=== PATIENT | male | born 1980 | race African-American/Black ===

== ENCOUNTER 2019-04-28 06:47 | Day surgery (SDC) | payer BC, OTHER ==
[2019-04-27 15:26] VITALS: BMI 35.1
--- NOTE | 2019-04-28 08:06 | HP ---
[facility] - Chief Complaint Chief Complaint: left wrist mass - Past Medical History Allergies/Adverse Reactions: Allergies Allergy/AdvReac Type Severity Reaction Status Date / Time No Known Drug Allergies Allergy Verified 12/07/12 13:12 - Current Medications Current Medications: Home Medications Medication Instructions Recorded Pantoprazole Sodium [Protonix -] 40 mg PO DAILY 04/27/19 Fluticasone/Salmeterol [Advair Hfa 1 inh PO BID PRN 04/28/19 115-21 Mcg Inhaler] Multivitamin [Multiple Vitamins] 1 each PO DAILY 04/28/19 Satellite Physical Exam - Physical Examination Vital Signs: Vital Signs Period Temp Pulse Resp BP Sys/Mccauley Pulse Ox Last 24 Hr 98.7 F 71 16 114/66 97 General Appearance: Well Nourished, Well Developed, Alert & Oriented x3 ENT: Clear Lung: Normal air movement Extremities: Other (left wrist- + mass, nvi) Neurological: Intact, Alert, Oriented Satellite Impression/Plan - Impression/Plan Impression: left wrist ganglion cyst Operative Procedure: left wrist ganglion cyst excision Date to be Performed: 04/28/19
[2019-04-28] MEDS ORDERED: ONDANSETRON 4 MG/2 ML VIAL IVPUSH PRN (08:30)
[2019-04-28] MEDS ORDERED: oxyCODONE HCL 5 MG TABLET PO PRN (08:30)
[2019-04-28] MEDS ORDERED: LACTATED RINGERS SOLUTION 1,000 ML IV SCH (08:30)
[2019-04-28] MEDS ORDERED: MIDAZOLAM HCL 2 MG/2 ML SINGLE DOSE VIAL ONE (09:07)
[2019-04-28] MEDS ORDERED: PROPOFOL 20 ML ONE (09:16)
[2019-04-28] MEDS ORDERED: BUPIVACAINE HCL/PF 0.5% (5 MG/ML) 30 ML VIAL IJ ONE ×2 (09:17→09:57)
[2019-04-28] MEDS ORDERED: SODIUM CHLORIDE 0.9% P/F 10 ML VIAL IJ ONE ×2 (09:19→09:21)
[2019-04-28] MEDS ORDERED: LIDOCAINE HCL/PF 2% SDV 5ML VIAL ONE (09:19)
[2019-04-28] MEDS ORDERED: ceFAZolin SODIUM 1 GM VIAL ONE (09:19)
[2019-04-28] MEDS ORDERED: ceFAZolin 2 GRAM PREMIX BAG IVPB ONE (09:44)
[2019-04-28] MEDS ORDERED: LIDOCAINE HCL 1%, 10 MG/ML (20ML VIAL) NR ONE (09:57)
--- NOTE | 2019-04-28 10:45 | OP ---
Operative Note - Note: Operative Date: 04/28/19 Pre-Operative Diagnosis: left wrist volar mass/ganglion cyst Operation: excision mass left wrist Post-Operative Diagnosis: Same as Pre-op Surgeon: Juan Daniel Vega Anesthesiologist/TECHNICAL STAFF ENGINEER: Jordan Gonzales Anesthesia: Local, MAC Specimens Removed: mass/ganglion left wrist Estimated Blood Loss (mls): 0 Drains, Volume Out (mls): 0 Blood Volume Replaced (mls): 0 Fluid Volume Replaced (mls): 300 Operative Report Dictated: Yes
--- NOTE | 2019-04-28 11:41 | OP ---
DATE OF OPERATION: 04/28/2019 PREOPERATIVE DIAGNOSIS: Left wrist mass, likely ganglion cyst. POSTOPERATIVE DIAGNOSIS: Left wrist mass, likely ganglion cyst. PROCEDURE: Excision mass/ganglion cyst, left wrist. SURGEON: Juan Daniel Vega MD BUSINESS OPERATIONS MANAGER: None. ANESTHESIA: Jordan Gonzales CRNA, MAC anesthesia, local injection of 12 mL 0.5% Marcaine, 1% lidocaine mix. DRAINS: None. COMPLICATIONS: None. SPECIMEN: Mass, left wrist, likely ganglion cyst. BLOOD LOSS: None. BLOOD GIVEN: None. FLUID REPLACEMENT: 700 mL Plasma-Lyte. DESCRIPTION OF PROCEDURE: This patient is a 38-year-old male with a preoperative diagnosis of a painful, fluctuating mass on the volar radial aspect of his left wrist. Likely it is a ganglion cyst. We discussed the potential risks, complications, alternatives, and benefits to surgery versus nonsurgical treatment. The patient elected to undergo this procedure. He understands even with surgical excision it has a very small chance of recurrence. The patient was brought to the operating room. Peripheral IV place. IV sedation given, 3 g of IV Ancef were given. MAC anesthesia was induced. The left upper extremity was prepped and draped in a sterile fashion. The entire case was done under 3.0 loupe magnification. The left upper extremity was elevated, exsanguinated with an Esmarch bandage. Tourniquet inflated to 250 mmHg. A longitudinal incision was marked out with a marking pen, 10 mL 0.5% Marcaine, 1% lidocaine mix was injected in and around the surgical excision. A longitudinal incision was made with a No. 15 scalpel blade. Subcutaneous hemostasis was achieved with a bipolar cautery. Dissection done in a very careful manner circumferentially around an abnormal mass with a curved, blunt-tipped Littler scissors. Crossing neurovascular structures were isolated and peeled off. The cyst of the radial artery did go right next to the artery. This was dissected in a plane between the ganglion cyst and the radial artery protecting it with blunt-tipped Ragnell retractor. An Allis clamp was placed onto the mass. I was able to identify the stalk and decapitate it at its base. The abnormal tissue was passed off the field as specimen. At 1 point it popped, and classic ganglion cyst-like fluid was evacuated. The base was cauterized. I did not see or feel any abnormal tissue. The area was copiously irrigated and washed out. Closure was done with 4-0 undyed Vicryl in the deep dermal layer. Final skin reapproximation was done with a running subcuticular 4-0 Biosyn stitch. The area was then washed and dried, covered with Steri-Strips, sterile 4 x 4's, fluffs between the fingers, Webril, and Coban. The tourniquet was taken down after a total tourniquet time of 17 minutes. There were no complications during the case. The patient tolerated the procedure quite well and was brought to the ambulatory recovery room in stable condition. Sumi [id number]
[2019-04-28 12:02] VITALS: BP 128/78; PULSE 81; TEMP 97.5
--- NOTE | 2019-05-03 18:42 | PATH ---
Surgical Pathology Report Patient Name: MARA BLOCK Med. Rec. #: [id number] /Age/Gender: 1980 (Age: 38) / M Account: [id number] Location: [facility] SURGICAL Taken: 04/28/2019 Received: 04/28/2019 Reported: 05/03/2019 Physicians: Juan Daniel Vega M.D. Specimen(s) Received LEFT WRIST MASS Clinical History Ganglion cyst left wrist Final Diagnosis WRIST, LEFT, MASS, EXCISION: GANGLION CYST. Electronically Signed Yasmin Ruiz M.D. Gross Description Received in formalin labeled "mass left wrist," is a 2.0 x 1.0 x 0.7 cm intact cystic structure containing mucinous material. The specimen is sectioned and outside sales representative sections are submitted in one cassette. 04/28/201904/28/2019
== END 2019-04-28 13:00 | disposition home or self-care (01) ==
LOC: JASU-SURG 06:47
PROVIDERS: ATTEND Orthopaedic Surgery
PROC: 0LB60ZZ Excision of Left Lower Arm and Wrist Tendon, Open Approach (ICD-10-PCS; principal; 2019-04-28 09:00)
DX: M67.432 Ganglion, left wrist (principal)
CPT/HCPCS: 88304-TC